=== PATIENT | female | born 1960 | race Caucasian/White ===

== ENCOUNTER 2017-01-21 13:44 | Emergency (ER) | payer MEDICAID ==
[2017-01-21] MEDS ORDERED: TETANUS/DIPHTHERIA/PERTUSSIS 0.5 ML SYRINGE IM ONE ×2 (13:53→13:55)
[2017-01-21] MEDS ORDERED: CEPHALEXIN 250 MG CAPSULE PO STA (14:24)
[2017-01-21] MEDS ORDERED: CEPHALEXIN 250 MG CAPSULE PO ONE (14:27)
== END 2017-01-21 14:32 | disposition home or self-care (01) ==
DX: L08.9 Local infection of the skin and subcutaneous tissue, unspecified (principal); S71.131A Puncture wound without foreign body, right thigh, initial encounter; S70.11XA Contusion of right thigh, initial encounter; W01.198A Fall on same level from slipping, tripping and stumbling with subsequent striking against other object, initial encounter; Y92.009 Unspecified place in unspecified non-institutional (private) residence as the place of occurrence of the external cause; Z23 Encounter for immunization; F17.200 Nicotine dependence, unspecified, uncomplicated
CPT/HCPCS: 90471; 90715; 99283; A9270

== ENCOUNTER 2017-05-09 09:52 | Emergency (ER) | payer SELFPAY ==
[2017-05-09 10:09] LABS: BILIRUBIN,URINE NEGATIVE (NEGATIVE)
[2017-05-09 10:11] LABS: HCG UR QUAL NEGATIVE; UA w/ MICROSCOPIC CHARGE YES
[2017-05-09 10:51] LABS: UR CULTURE IF IND NOT INDICATED; WBC,URINE >25 /HPF (0-5)
--- NOTE | 2017-05-09 11:32 | ED Physician Documentation ---
History of Present Illness - Stated complaint Stated Complaint: FEMALE - Chief complaint Chief Complaint: General - Additonal information Additional information: Patient is a 57-year-old female who is otherwise healthy. She presents with a complaint of lower urinary symptoms started this morning. She has frequency, urgency, and hesitancy. She can still still because of the lower bladder pain. She otherwise is healthy and does not have any complaints of fever or chills. She started having a couple episodes of nausea this morning with one episode of vomiting. Review of systems: For pertinent positive and negatives in the review of systems please see the history of present illness, otherwise all other systems have been reviewed and are negative. Dragon disclaimer: Parts of this medical record were created using voice recognition technology. Because of the inherent limitations of this system, occasional same sounding word substitutions do occur and persist despite proofreading. Please read the document for context. 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 - Present Medications Home Medications: Ambulatory Orders Medication Instructions Recorded Confirmed Ciprofloxacin HCl [Cipro] 500 mg PO BID #10 tablet 05/09/17 Ondansetron Odt [Zofran] 4 mg TL Q6H PRN #10 tablet 05/09/17 Phenazopyridine HCl [Pyridium] 200 mg PO TID #9 tablet 05/09/17 oxyCODONE/ACET 5/325 [Percocet 5 1 each PO Q4-6H PRN #10 tablet 05/09/17 mg/325 mg] - Allergies Allergies/Adverse Reactions: Allergies Allergy/AdvReac Type Severity Reaction Status Date / Time iodine Allergy Unknown Verified 05/09/17 10:05 - Social History Does the pt smoke?: Yes Smoking Status: Current some day smoker Does the pt drink ETOH?: No Does the pt have substance abuse?: No - Immunizations Immunizations: TDAP >10years/unknown PD ED PE NORMAL - Vitals Vital signs reviewed: Yes - General General: Alert and oriented X 3, No acute distress, Well developed/nourished, Other (Patient looks a little uncomfortable. She is pacing at her bed. Well- appearing slightly flushed) - HEENT HEENT: Atraumatic - Neck Neck: Supple, no meningeal sign - Cardiac Cardiac: RRR - Respiratory Respiratory: No respiratory distress, Clear bilaterally - Abdomen Abdomen: Normal bowel sounds, Soft - Back Back: No CVA TTP - Derm Derm: Normal color, Warm and dry, No rash Results - Vitals Vitals: Vital Signs - 24 hr 05/09/17 10:04 Temperature 36.8 C Heart Rate 98 Respiratory 17 Rate Blood Pressure 139/94 H O2 Saturation 98 Oxygen O2 Source Room air - Labs Labs: Laboratory Tests 05/09/17 09:50 Urine Color YELLOW Urine Clarity CLOUDY Urine pH 6.0 Ur Specific [place] 1.025 Urine Protein >=300 H Urine Glucose (UA) NEGATIVE Urine Ketones TRACE Urine Occult Blood LARGE H Urine Nitrite POSITIVE H Urine Bilirubin NEGATIVE Urine Urobilinogen 0.2 (NORMAL) Ur Leukocyte Esterase MODERATE H Urine RBC TNTC H Urine WBC >25 H Urine WBC Clumps PRESENT Ur Squamous Epith Cells MOD Squamous H Urine Bacteria Many H Ur Microscopic Review INDICATED Urine Culture Comments NOT INDICATED Urine HCG, Qual NEGATIVE PD MEDICAL DECISION MAKING - ED course Complexity details: reviewed old records, reviewed results, re-evaluated patient , d/w patient ED course: Well-appearing pleasant 57-year-old woman who really for the most part is very healthy. She presents with lower urinary symptoms starting this morning and then had some nausea and episode of vomiting here in emergency department. For the most part she looks well. Her symptoms and urinalysis are consistent with a lower urinary tract infection. She wanted to try oral approach here initially so she is given Pyridium ciprofloxacin tramadol and Zofran. She wants to be discharged these medications which I have written she agrees to come back should she worsen and be unable to take her antibiotics. Disposition: To home Clinical impression: 1. Acute lower urinary tract infection Departure - Departure Disposition: Home, Self Care Clinical Impression: UTI (urinary tract infection) Qualifiers: Urinary tract infection type: acute cystitis Hematuria presence: without hematuria Qualified Code(s): N30.00 - Acute cystitis without hematuria Condition: Good Instructions: ED UTI Cystitis Female Follow-Up: Courtney Waggoner ARNP [Primary Care Provider] - Prescriptions: Ciprofloxacin HCl [Cipro] 500 mg PO BID #10 tablet oxyCODONE/ACET 5/325 [Percocet 5 mg/325 mg] 1 each PO Q4-6H PRN #10 tablet PRN Reason: Pain Phenazopyridine HCl [Pyridium] 200 mg PO TID #9 tablet Ondansetron Odt [Zofran] 4 mg TL Q6H PRN #10 tablet PRN Reason: Nausea / Vomiting Forms: Activity restrictions
[2017-05-09] MEDS ORDERED: traMADol 50 MG TABLET PO ONE (11:36)
[2017-05-09] MEDS ORDERED: CIPROFLOXACIN 250 MG TABLET PO ONE (11:36)
[2017-05-09 11:37] VITALS: BP 137/88
[2017-05-09] MEDS: CIPROFLOXACIN 250 MG TABLET PO STA (11:37)
[2017-05-09] MEDS: ONDANSETRON ODT 4 MG TABLET TL STA (11:37)
[2017-05-09] MEDS ORDERED: PHENAZOPYRIDINE 100 MG TABLET PO ONE (11:37)
[2017-05-09] MEDS ORDERED: ONDANSETRON ODT 4 MG TABLET ONE (11:37)
[2017-05-09] MEDS: traMADol 50 MG TABLET PO STA (11:38)
[2017-05-09] MEDS: PHENAZOPYRIDINE 100 MG TABLET PO STA (11:38)
== END 2017-05-09 11:42 | disposition home or self-care (01) ==
LOC: ED 09:52
DX: N30.00 Acute cystitis without hematuria (principal); F17.200 Nicotine dependence, unspecified, uncomplicated
CPT/HCPCS: 81001; 81025; 99283; A9270; Q0162; 81003; 87086

== ENCOUNTER 2018-09-14 15:26 | Outpatient (CLI) | payer OTHER ==
--- NOTE | 2018-09-17 08:52 | Ultrasound Report ---
Reason: LUMP Procedure Date: 09/14/2018 Accession Number: [id number] / [id number] Procedure: US - Head or Neck Soft Tissue CPT Code: FULL RESULT: EXAM: THYROID ULTRASOUND EXAM DATE: 09/14/2018 04:08 PM. CLINICAL HISTORY: Lump. COMPARISON: None. TECHNIQUE: Real time sonographic imaging of the right medial clavicle at site of palpable lump with comparative imaging of the left medial clavicle was performed by the measuring machine tender. Multiple dermatology sales representative static images were saved for review. FINDINGS: Right clavicle: There is a nonspecific asymmetric heterogeneous echotexture soft tissue mass/prominence of the medial right clavicle corresponding to palpable area of concern measuring 1.6 x 6 x 9 mm in dimension. Appearance is asymmetric compared to the contralateral side. There is internal nonshadowing hyperechogenicity within this soft tissue mass. Mass is not vascular. Exact relationship to the sternoclavicular joint is not determined on these images. LYMPH NODES: No adenopathy demonstrated in the imaged areas. OTHER: None. IMPRESSION: 1. Asymmetric, nonspecific soft tissue mass corresponding to a palpable mass medial right clavicle. Differential considerations include degenerative changes arising from the sternoclavicular joint versus a true mass. Consider definitive imaging with CT. RADIA
== END 2018-09-14 15:27 | disposition home or self-care (01) ==
LOC: DI 15:26
PROVIDERS: ATTEND Nurse Practitioner Gerontology
DX: R22.2 Localized swelling, mass and lump, trunk (principal)
CPT/HCPCS: 76536

== ENCOUNTER 2018-09-21 14:55 | Outpatient (CLI) | payer OTHER ==
[2018-09-21 17:23] LABS: CALCIUM 9.6 mg/dL (8.5-10.3); CREATININE 0.6 mg/dL (0.4-1.0)
== END 2018-09-21 23:59 | disposition home or self-care (01) ==
LOC: LAB.N 14:55
PROVIDERS: ATTEND Nurse Practitioner Gerontology
DX: Z13.9 Encounter for screening, unspecified (principal)
CPT/HCPCS: 36415; 80048

== ENCOUNTER 2018-10-04 14:42 | Outpatient (CLI) | payer OTHER ==
--- NOTE | 2018-10-05 10:00 | CT Report ---
Reason: LUMP Procedure Date: 10/04/2018 Accession Number: [id number] / [id number] Procedure: CT - Neck Soft Tissue W/O CPT Code: FULL RESULT: EXAM: CT SOFT TISSUE NECK WITHOUT CONTRAST. EXAM DATE: 10/04/2018 02:57 PM. HISTORY: Lump in region of superior chest near right sternoclavicular joint. COMPARISONS: Ultrasound soft tissue neck 09/14/2018. TECHNIQUE: Routine soft tissue neck CT protocol. Reconstructions: Coronal and sagittal. IV contrast: None. Patient reports an anaphylactic allergy to iodine contrast. In accordance with CT protocol optimization, one or more of the following dose reduction techniques were utilized for this exam: automated exposure control, adjustment of mA and/or KV based on patient size, or use of iterative reconstructive technique. FINDINGS: The lack of intravenous contrast limits the examination. There is arthrosis and hypertrophic change centered on the right sternoclavicular joint. Subchondral cyst formation is seen involving the right clavicular head. No significant hypertrophic change is seen in the left sternoclavicular joint. These findings are seen just below the level of the marker placed along the anterior right lower neck. Noncontrast neck CT demonstrates no suspicious soft tissue mass in the right lower neck or in the upper chest. Atherosclerotic calcification is seen in the distal CCA and proximal cervical ICA bilaterally. The thyroid gland is not enlarged. No mass is present in either parotid gland or in either submandibular gland. No bulky lymphadenopathy is seen in the visualized upper mediastinum or along either internal jugular chain. No mass is identified in either visualized orbit. No mass is identified in the visualized brain. No mass is present in the nasopharynx. The parapharyngeal fat is symmetric. Aryepiglottic folds are symmetric. No subglottic stenosis is seen. No suspicious spiculated mass is present in either lung apex. Degenerative disk disease and osteophyte formation are present at C5-C6. Anterior disk protrusion and osteophyte formation is seen at C6-C7. No air-fluid level is seen in the visualized paranasal sinuses. IMPRESSION: 1. Arthrosis and hypertrophic change are seen involving the right sternoclavicular joint. This might well be the etiology of the patient's palpable abnormality. 2. No bulky lymphadenopathy is identified by noncontrast CT in the neck. 3. Atherosclerotic plaque is seen involving the distal CCA extending into the proximal cervical ICA bilaterally. RADIA
== END 2018-10-04 14:43 | disposition home or self-care (01) ==
LOC: DI 14:42
PROVIDERS: ATTEND Nurse Practitioner Gerontology
DX: M19.011 Primary osteoarthritis, right shoulder (principal); I65.23 Occlusion and stenosis of bilateral carotid arteries
CPT/HCPCS: 70490

== ENCOUNTER 2019-01-08 09:24 | Outpatient (CLI) | payer OTHER | END 2019-01-08 23:59 | disposition home or self-care (01) | LOC: LAB.R 09:24 | PROVIDERS: ATTEND Nurse Practitioner | DX: N76.0 Acute vaginitis (principal) | CPT/HCPCS: 87480; 87510; 87660 ==

== ENCOUNTER 2019-01-15 15:01 | Emergency (ER) | payer OTHER ==
[2019-01-15 15:12] VITALS: BP 121/96
[2019-01-15] MEDS ORDERED: BUFFERED LIDOCAINE 10 ML SYRINGE SUBQ STA (16:15)
--- NOTE | 2019-01-15 16:35 | ED Physician Documentation ---
PD HPI UPPER EXT INJURY - Stated complaint Stated Complaint: RT HAND LAC - Chief complaint Chief Complaint: Laceration - History obtained from History obtained from: Patient - History of Present Illness Location: Right, Finger (thumb) Type of injury: Laceration Where injury occurred: Work Timing - onset: Enter time (1529), Yesterday Timing - duration: Days (1) Timing - details: Abrupt onset, Still present Improved by: Rest, Immobilization Worsened by: Moving, Palpating Associated symptoms: No: Weakness, Numbness, Tingling, Swelling Contributing factors: No: Anticoagulated Similar symptoms before: Diagnosis (laceration) Recently seen: Not recently seen - Additonal information Additional information: 58-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 This happened yesterday she was able to tape it closed and when she got back to work today she took the bandages off and her boss insisted she come to the emergency department for evaluation. 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 - Present Medications Home Medications: Ambulatory Orders Medication Instructions Recorded Confirmed metroNIDAZOLE [Metronidazole] 500 mg PO 01/15/19 01/15/19 - Allergies Allergies/Adverse Reactions: Allergies Allergy/AdvReac Type Severity Reaction Status Date / Time iodine Allergy Unknown Verified 01/15/19 15:12 - Social History Does the pt smoke?: Yes Smoking Status: Current every day smoker Does the pt drink ETOH?: No Does the pt have substance abuse?: No - Immunizations Immunizations: TDAP >10years/unknown PD ED PE NORMAL - Vitals Vital signs reviewed: Yes (hypertensive ) - General General: Alert and oriented X 3, No acute distress, Well developed/nourished - HEENT HEENT: Atraumatic, PERRL, EOMI - Neck Neck: Supple, no meningeal sign - Respiratory Respiratory: No respiratory distress - Derm Derm: Normal color, Warm and dry, No rash - Extremities Extremities: No deformity, No edema, Other (There is a 2 cm flap laceration on the pulp of the thumb. 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, No motor deficit, No sensory deficit, Normal speech Eye Opening: Spontaneous Motor: Obeys Commands Verbal: Oriented GCS Score: 15 - Psych Psych: Normal mood, Normal affect Results - Vitals Vitals: Vital Signs - 24 hr 01/15/19 15:10 Temperature 36.9 C Heart Rate 88 Respiratory 20 Rate Blood Pressure 121/96 H O2 Saturation 99 Oxygen O2 Source Room air Procedures - Laceration (location) right thumb Length in cm: 2 Wound type: Curved, Flap, Into subcut fat, Clean Neurovascular status: Sensory intact, Motor intact, Vascular intact Anesthesia: Lidocaine 1%, With bicarb Wound Preparation: Hibiclens, Irrigated copiously NS, Wound explored, To the base Skin layer closure: Nylon, Interrupted, Size #-0 - enter number (4-0), Sutures - enter # (5) Other: Patient tolerated well, No complications, Neurovascular intact, Dressing applied, Tetanus UTD Complexity: Simple PD MEDICAL DECISION MAKING - ED course Complexity details: considered differential, d/w patient ED course: 58-year-old female with a 24-hour old laceration and appears to have vital tissue and the laceration is cleansed and closed. Departure - Departure Disposition: 01 Home, Self Care Clinical Impression: Thumb laceration Qualifiers: Encounter type: initial encounter Damage to nail status: without damage Foreign body presence: without foreign body Laterality: right Qualified Code(s): S61.011A - Laceration without foreign body of right thumb without damage to nail, initial encounter Condition: Stable Instructions: ED Laceration Hand Follow-Up: Danii Serna DNP [Primary Care Provider] - Comments: Sutures will need to be removed in 7-10 days.
== END 2019-01-15 16:48 | disposition home or self-care (01) ==
LOC: ED 15:01
DX: S61.011A Laceration without foreign body of right thumb without damage to nail, initial encounter (principal); W25.XXXA Contact with sharp glass, initial encounter; Y93.89 Activity, other specified; Y92.89 Other specified places as the place of occurrence of the external cause; Y99.0 Civilian activity done for income or pay; F17.200 Nicotine dependence, unspecified, uncomplicated
CPT/HCPCS: 12001; 99282

== ENCOUNTER 2019-01-29 13:54 | Outpatient (CLI) | payer OTHER ==
[2019-01-29 19:53] LABS: CHOLESTEROL 225 mg/dL; HDL CHOLESTEROL 45 mg/dL; LDL CHOLESTEROL,CALCULATED 163 mg/dL; LDL/HDL RATIO 3.6 (<4.4); VLDL CHOLESTEROL 17 mg/dL
== END 2019-01-29 23:59 | disposition home or self-care (01) ==
LOC: LAB.N 13:54
PROVIDERS: ATTEND Hospitalist
DX: I70.90 Unspecified atherosclerosis (principal)
CPT/HCPCS: 36415; 80061; 83721

== ENCOUNTER 2019-03-03 02:47 | Outpatient (CLI) | payer OTHER | END 2019-03-03 02:48 | disposition critical access hospital (66) | LOC: EMS 02:47 | PROVIDERS: ATTEND Surgery | DX: S99.911A Unspecified injury of right ankle, initial encounter (principal); R41.82 Altered mental status, unspecified; W19.XXXA Unspecified fall, initial encounter; Y92.008 Other place in unspecified non-institutional (private) residence as the place of occurrence of the external cause | CPT/HCPCS: A0425; A0429 ==

== ENCOUNTER 2019-03-03 03:27 | Emergency (ER) | payer OTHER ==
--- NOTE | 2019-03-03 04:01 | ED Physician Documentation ---
PD HPI LOWER EXT INJURY - Stated complaint Stated Complaint: FELL DOWN STAIRS, ETOH, ? RIGHT ANKLE FX - Chief complaint Chief Complaint: Trauma Hd/Nk - History obtained from History obtained from: Patient - History of Present Illness PD HPI LOW EXT INJURY LOCATION: Right, Ankle Type of injury: Fall (She was at a friend's birthday libertarian and had been drinking. She was walking down some steps and fell. She denies injury to the head or neck. She did have pain in the right ankle. Her circular knife machine cutter was concerned about the fall and called EMS. She was brought here with a cervical collar in place. She did not want to be on a backboard. She states she did not feel she had a significant injury of the ankle.) Timing - onset: How many minutes ago (30), Today Timing - details: Abrupt onset Worsened by: Moving, Palpating Associated symptoms: Swelling (lateral aspect right ankle). 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 - Present Medications Home Medications: Ambulatory Orders Medication Instructions Recorded Confirmed metroNIDAZOLE [Metronidazole] 500 mg PO 01/15/19 01/15/19 - Allergies Allergies/Adverse Reactions: Allergies Allergy/AdvReac Type Severity Reaction Status Date / Time iodine Allergy Unknown Verified 03/03/19 03:33 - Social History Does the pt smoke?: Yes Smoking Status: Current every day smoker Does the pt drink ETOH?: No Does the pt have substance abuse?: No - Immunizations Immunizations: TDAP >10years/unknown - POLST Patient has POLST: No PD ED PE NORMAL - Vitals Vital signs reviewed: Yes - General General: Alert and oriented X 3, No acute distress, Well developed/nourished - HEENT HEENT: Atraumatic, PERRL, EOMI - Neck Neck: Supple, no meningeal sign, No bony TTP, No adenopathy - Cardiac Cardiac: RRR, No murmur - Respiratory Respiratory: Clear bilaterally - Abdomen Abdomen: Soft, Non tender - Derm Derm: Normal color, Warm and dry - Neuro Neuro: Alert and oriented X 3 (She is slightly loud and talking. She is however able to answer questions appropriately.), No motor deficit, No sensory deficit Results - Vitals Vitals: Vital Signs - 24 hr 03/03/19 03:29 Temperature 36.4 C L Heart Rate 88 Respiratory 18 Rate Blood Pressure 130/86 H O2 Saturation 94 Oxygen O2 Source Room air - Rads (name of study) right ankle Radiology: Prelim report reviewed, EMP read contemporaneously (no ankle fractures. Old calcifications off the lateral cuboid, do not appear acute.), See rad report PD MEDICAL DECISION MAKING - ED course Complexity details: re-evaluated patient (She is able to ambulate here in the ER. A ankle brace. Her x-ray does not show any obvious fractures. She still does not have any headache chest pain belly pain or neck pain.), considered differential, d/w patient Departure - Departure Disposition: 01 Home, Self Care Clinical Impression: Fall down steps Qualifiers: Encounter type: initial encounter Qualified Code(s): W10.8XXA - Fall (on) (from) other stairs and steps, initial encounter Ankle sprain Qualifiers: Encounter type: initial encounter Involved ligament of ankle: unspecified ligament Laterality: right Qualified Code(s): S93.401A - Sprain of unspecified ligament of right ankle, initial encounter Alcohol intoxication Qualifiers: Complication of substance-induced condition: uncomplicated Qualified Code(s): F10.920 - Alcohol use, unspecified with intoxication, uncomplicated Condition: Stable Record reviewed to determine appropriate education?: Yes Instructions: ED Sprain Ankle Follow-Up: Danii Serna DNP [Primary Care Provider] - Comments: Activity as tolerated based on comfort of walking. Tylenol or ibuprofen as needed for pains. Elevate and rest your ankle and foot through the day today to reduce the swelling. I would anticipate improvement over the next several days to week.
--- NOTE | 2019-03-03 04:41 | XRAY Report ---
Reason: fell down stairs; ankle swelling. Procedure Date: 03/03/2019 Accession Number: [id number] / [id number] Procedure: XR - Ankle 3 View RT CPT Code: FULL RESULT: EXAM: RIGHT ANKLE RADIOGRAPHY EXAM DATE: 03/03/2019 04:31 AM. CLINICAL HISTORY: Fell down stairs; ankle swelling. COMPARISON: None. TECHNIQUE: 3 views. FINDINGS: Bones: Normal. No fractures or bone lesions. Joints: Normal. No effusion. No subluxations. The ankle mortise is normally aligned. Soft Tissues: Soft tissue swelling. No radiopaque foreign body. IMPRESSION: Soft tissue swelling. No evidence of acute fracture. RADIA
[2019-03-03 04:58] VITALS: BP 122/81
== END 2019-03-03 05:13 | disposition home or self-care (01) ==
LOC: EDUNIT# → ED 03:27
DX: S93.401A Sprain of unspecified ligament of right ankle, initial encounter (principal); W10.9XXA Fall (on) (from) unspecified stairs and steps, initial encounter; Y93.01 Activity, walking, marching and hiking; F10.920 Alcohol use, unspecified with intoxication, uncomplicated; F17.200 Nicotine dependence, unspecified, uncomplicated
CPT/HCPCS: 99283

== ENCOUNTER 2021-06-05 08:00 | Outpatient (CLI) | payer SELFPAY | END 2021-06-05 23:59 | disposition home or self-care (01) | LOC: LAB.S 08:00 | PROVIDERS: ATTEND Physician Assistant Medical | DX: N39.0 Urinary tract infection, site not specified (principal) | CPT/HCPCS: 87077; 87086; 87181 ==

== ENCOUNTER 2021-10-25 08:00 | Outpatient (CLI) | payer SELFPAY ==
[2021-10-25 22:45] LABS: BACTERIAL VAGINOSIS DNA NEGATIVE (NEGATIVE); CANDIDA GLABRATA DNA NEGATIVE (NEGATIVE); CANDIDA GROUP DNA NEGATIVE (NEGATIVE); CANDIDA KRUSEI DNA NEGATIVE (NEGATIVE); TRICHOMONAS VAGINALIS DNA NEGATIVE (NEGATIVE)
== END 2021-10-25 23:59 | disposition home or self-care (01) ==
LOC: LAB.S 08:00
PROVIDERS: ATTEND Physician Assistant
DX: N89.8 Other specified noninflammatory disorders of vagina (principal)
CPT/HCPCS: 87661; 87801

== ENCOUNTER 2023-08-17 10:19 | Outpatient (CLI) | payer SELFPAY ==
[2023-08-17 14:56] LABS: BILIRUBIN,URINE NEGATIVE (NEGATIVE); GLUCOSE, URINE (UA) NEGATIVE (NEGATIVE); KETONES,URINE (UA) NEGATIVE (NEGATIVE); LEUKOCYTE ESTERASE, URINE NEGATIVE (NEGATIVE); NITRITE,URINE POSITIVE (NEGATIVE); OCCULT BLOOD,URINE SMALL (NEGATIVE); PH,URINE 5.5 PH (5.0-7.5); PROTEIN,URINE NEGATIVE (NEGATIVE); UROBILINOGEN,URINE 0.2 (NORMAL) E.U./dL (NORMAL)
[2023-08-17 15:18] LABS: BACTERIA,URINE Moderate /HPF (None Seen); CLARITY,URINE SL. CLOUDY (CLEAR); SQUAMOUS EPITHELIAL CELL,UR RARE Squamous (<= Few); WBC,URINE >25 /HPF (0-5)
== END 2023-08-17 10:20 | disposition home or self-care (01) ==
LOC: LAB.S 10:19
PROVIDERS: ATTEND Emergency Medicine
DX: R30.0 Dysuria (principal)
CPT/HCPCS: 81001; 87077; 87086; 87181

== ENCOUNTER 2023-09-24 21:18 | Outpatient (CLI) | payer MEDICAID | END 2023-09-24 23:59 | disposition critical access hospital (66) | LOC: EMS 21:18 | DX: S02.5XXA Fracture of tooth (traumatic), initial encounter for closed fracture (principal); R41.82 Altered mental status, unspecified; W19.XXXA Unspecified fall, initial encounter; Y92.009 Unspecified place in unspecified non-institutional (private) residence as the place of occurrence of the external cause; F10.90 Alcohol use, unspecified, uncomplicated | CPT/HCPCS: A0425; A0427; A0999 ==

== ENCOUNTER 2023-09-24 21:42 | Emergency (ER) | payer MEDICAID ==
[2023-09-24] MEDS ORDERED: SODIUM CHLORIDE 0.9% 1,000 ML IV STA (21:55)
[2023-09-24 22:22] LABS: BASOPHILS % (AUTO) 0.4 %; EOSINOPHILS # (AUTO) 0.1 10^3/uL (0.0-0.7); HCT - HEMATOCRIT 41.2 % (37.0-47.0); HGB - HEMOGLOBIN 13.3 g/dL (12.0-16.0); LYMPHOCYTES # (AUTO) 2.4 10^3/uL (1.5-3.5); MEAN CORPUSCULAR HEMOGLOBIN 28.7 pg (27.0-31.0); MEAN CORPUSCULAR HGB CONC 32.3 g/dL (32.0-36.0); MEAN PLATELET VOLUME 9.8 fL (7.9-10.8); MONOCYTES # (AUTO) 0.6 10^3/uL (0.0-1.0); MONOCYTES % (AUTO) 8.1 %; NEUTROPHILS # (AUTO) 3.9 10^3/uL (1.5-6.6); NEUTROPHILS % (AUTO) 55.2 %; PLT - PLATELET COUNT 260 10^3/uL (130-450); RED BLOOD COUNT 4.63 10^6/uL (4.20-5.40); RED CELL DISTRIBUTION WIDTH 13.9 % (12.0-15.0)
[2023-09-24 22:36] LABS: ALBUMIN/GLOBULIN RATIO 1.4 (1.0-2.2); BILIRUBIN,TOTAL 0.3 mg/dL (0.2-1.0); CALCIUM 8.8 mg/dL (8.5-10.3); CREATININE 0.6 mg/dL (0.6-1.3); ETOH - ETHANOL 401.5 mg/dL; POTASSIUM 3.4 mmol/L (3.5-4.5); TOTAL PROTEIN 6.9 g/dL (6.4-8.9)
--- NOTE | 2023-09-24 23:51 | ED Physician Documentation ---
History of Present Illness - Stated complaint Stated Complaint: GLF, ETOH, MOUTH INJURY - Chief complaint Chief Complaint: Neuro - History obtained from History obtained from: Patient - Additonal information Additional information: 63yF presents s/p unwitnessed fall from standing with unknown LOC and AMS. patient intoxicated with alcohol. alerted only to self. GCS 13 on arrival. 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 - Present Medications Home Medications: Ambulatory Orders Medication Instructions Recorded Confirmed Amox/Clav 875/125 [Augmentin 1 tablet PO Q12H 5 Days #10 tablet 09/25/23 875/125 Tab] - Allergies Allergies/Adverse Reactions: Allergies Allergy/AdvReac Type Severity Reaction Status Date / Time iodine Allergy Unknown Verified 09/24/23 22:02 - Social History Does the pt smoke?: Yes Smoking Status: Current every day smoker Does the pt drink ETOH?: No Does the pt have substance abuse?: No - Immunizations Immunizations are current?: Yes Immunizations: TDAP >10years/unknown - POLST Patient has POLST: No PD ED PE NORMAL - Vitals Vital signs reviewed: Yes - General General: No acute distress, Well developed/nourished, Other (AOX1) - HEENT HEENT: Atraumatic, PERRL, EOMI, Moist mucous membranes, Other (avulsed upper central incisor with exposed pulp) - Neck Neck: No bony TTP, Other (soft collar in place on arrival) - Cardiac Cardiac: RRR - Respiratory Respiratory: No respiratory distress, Clear bilaterally - Abdomen Abdomen: Non tender, Non distended - Derm Derm: Normal color, Warm and dry - Neuro Neuro: medical support assistant 2-12 intact, No motor deficit, No sensory deficit, Normal speech Eye Opening: To Voice Motor: Obeys Commands Verbal: Confused GCS Score: 13 - Psych Psych: Other (intoxicated with alcohol) Results - Vitals Vitals: Vital Signs - 24 hr 09/24/23 09/24/23 09/24/23 21:49 22:49 23:08 Temperature 36.8 C Heart Rate 73 80 80 Respiratory 20 16 24 Rate Blood Pressure 114/70 117/74 93/83 H O2 Saturation 97 98 95 If not protocol : Oxygen Flow, liters/minute 09/25/23 09/25/23 09/25/23 00:31 02:06 02:40 Temperature Heart Rate 80 80 Respiratory 24 16 Rate Blood Pressure 116/75 107/70 134/77 H O2 Saturation 100 100 100 If not protocol 2 : Oxygen Flow, liters/minute Oxygen O2 Source Nasal cannula - Labs Labs: Laboratory Tests 09/24/23 09/24/23 22:18 22:18 WBC 7.0 RBC 4.63 Hgb 13.3 Hct 41.2 MCV 89.0 MCH 28.7 MCHC 32.3 RDW 13.9 Plt Count 260 MPV 9.8 Neut # (Auto) 3.9 Lymph # (Auto) 2.4 [place] # (Auto) 0.6 Eos # (Auto) 0.1 Baso # (Auto) 0.0 Absolute Nucleated RBC 0.00 Nucleated RBC % 0.0 Sodium 138 Potassium 3.4 L Chloride 107 Carbon Dioxide 17 L Anion Gap 14.0 H BUN 16 Creatinine 0.6 Estimated GFR (MDRD) 101 Glucose 184 H Calcium 8.8 Total Bilirubin 0.3 AST 31 ALT 34 Alkaline Phosphatase 91 Total Protein 6.9 Albumin 4.0 Globulin 2.9 Albumin/Globulin Ratio 1.4 Lipase 30 Ethyl Alcohol 401.5 PD Medical Decision Making - ED course ED course: 63yF presents to the ED with tooth avulsion and for medical eval s/p unwitnessed fall, +etoh. patient not on blood thinners per ems, but history largely unknown 2/[address] head/C spine/max facial employed given possible head injury in setting of AMS. imaging negative except for tooth fracture. Avulsed tooth was treated with dental sealant, antibiotics, and referral to emergency dental provided. d/w Dr. Beka Robb over the phone. return precautions given. Departure - Departure Disposition: 01 Home, Self Care Clinical Impression: Avulsed tooth, Alcohol abuse, Fall Condition: Stable Instructions: ED Fx Tooth Follow-Up: BEKA ROBB [Physician No Access] - Prescriptions: Amox/Clav 875/125 [Augmentin 875/125 Tab] 1 tablet PO Q12H 5 Days #10 tablet Comments: You were seen in the emergency department for Avulsed tooth and alcohol intoxication. You need to follow-up with emergency dental in 48 hours. Prescription for augmentin antibiotic was printed for you. Please return to the emergency department if you have any new or worsening symptoms or other concerns. Forms: PCP List
[2023-09-25] MEDS ORDERED: AMOX/CLAV 875 MG/125 MG TABLET PO STA (01:15)
--- NOTE | 2023-09-25 01:52 | CT Report ---
PROCEDURE: HEAD WO INDICATIONS: fall from standing, unwitness +etoh TECHNIQUE: Noncontrast 4.5 mm thick angled axial sections acquired from the foramen magnum to the vertex. For r adiation dose reduction, the following was used: automated exposure control, adjustment of mA and/or kV according to patient size. COMPARISON: None. FINDINGS: Image quality: Partially degraded by patient motion artifact. CSF spaces: Basal cisterns are patent. No extra-axial fluid collections. Ventricles are normal in size and shape. Brain: No midline shift. No intracranial masses or hemorrhage. [place]-white matter interface is norm al. Skull and face and sinuses: Please see separately dictated CT maxillofacial study obtained concurrent ly.. IMPRESSION: No acute intracranial pathology. Reviewed by: Kathleen Salter MD on 09/25/2023 1:51 AM PST Approved by: Kathleen Salter MD on 09/25/2023 1:51 AM PST Station ID: [id number]
--- NOTE | 2023-09-25 01:55 | CT Report ---
PROCEDURE: CERVICAL SPINE WO INDICATIONS: unwitnessed fall TECHNIQUE: Noncontrast 3 mm thick sections acquired from the skull base to the T4 level. Sagittal and coronal r eformats were then constructed. For radiation dose reduction, the following was used: automated exp osure control, adjustment of mA and/or kV according to patient size. COMPARISON: None. FINDINGS: Image quality: Diagnostic. Bones: No fractures or dislocations. Visualized superior ribs are intact. Multilevel degenerative changes, worse at C5-C6. Soft tissues: Prevertebral soft tissues are normal in thickness. No paravertebral hematomas. No ap ical pneumothoraces. IMPRESSION: No acute fracture or traumatic subluxation. Reviewed by: Kathleen Salter MD on 09/25/2023 1:54 AM PST Approved by: Kathleen aSlter MD on 09/25/2023 1:54 AM PST Station ID: [id number]
--- NOTE | 2023-09-25 02:03 | CT Report ---
PROCEDURE: MAXILLOFACIAL WO INDICATIONS: fall on face, unwitnessed TECHNIQUE: Noncontrast 1.5 mm thick axial images acquired from the mandible through the frontal sinuses, with co caron and sagittal reformatting. For radiation dose reduction, the following was used: automated ex posure control, adjustment of mA and/or kV according to patient size. COMPARISON: Same day CT head without contrast 09/25/2023 obtained concurrently. FINDINGS: Image quality: Streak artifact from dental hardware limits evaluation of surrounding soft tissue.. Bones and teeth: Orbital brown are intact. Sinus brown show no fracture or deformity. Nasal bones and septum are intact. Visualized portions of the mandible demonstrate no fractures or subluxation. Zygomatic arches are intact. Pterygoid plates are intact. Visualized portions of the skull base an d auditory canals are intact. Tooth #8 is absent and tooth #9 is fractured Sinuses: Mucous retention cyst in the right frontal sinus. Remainder of the paranasal sinuses are ae rated, without fluid levels, mucosal thickening, or mucoceles. Mastoid air cells are aerated. Soft tissues: No edema, masses, or fluid collections. No enlarged lymph nodes. No soft tissue lace rations or debris. Vascular: Visualized vascular structures appear normal in the absence of contrast. Bony vascular fo ramina and canals are intact. IMPRESSION: No acute craniofacial fracture. Central tooth #9 is fractured and central tooth #8 is absent. Reviewed by: Kathleen Salter MD on 09/25/2023 2:02 AM PST Approved by: Kathleen Salter MD on 09/25/2023 2:02 AM PST Station ID: [id number]
[2023-09-25 04:05] VITALS: BP 119/73; O2SAT 100
== END 2023-09-25 04:25 | disposition home or self-care (01) ==
LOC: EDUNIT# → ED 21:42
DX: S03.2XXA Dislocation of tooth, initial encounter (principal); W18.30XA Fall on same level, unspecified, initial encounter; F10.129 Alcohol abuse with intoxication, unspecified; F17.200 Nicotine dependence, unspecified, uncomplicated
CPT/HCPCS: 36415; 70450; 70486; 72125; 80053; 80320; 83690; 85025; 99284; A9270

== ENCOUNTER 2023-10-25 07:00 | Outpatient (CLI) | payer MEDICAID ==
--- NOTE | 2023-10-25 19:52 | XRAY Report ---
PROCEDURE: Chest 2V INDICATIONS: DYSPNEA ON EXERTION TECHNIQUE: 2 views of the chest were obtained. COMPARISON: None. FINDINGS: Surgical changes and devices: None. Lungs and pleura: No pleural effusions or pneumothorax. Lungs are clear. Mediastinum: Mediastinal contours appear normal. Heart size is normal. Bones and chest wall: No suspicious bony lesions. Overlying soft tissues appear unremarkable. IMPRESSION: Normal two-view chest x-ray Reviewed by: Ke West MD on 10/25/2023 6:50 PM [facility] Approved by: Ke West MD on 10/25/2023 6:50 PM [facility] Station ID: [id number]
== END 2023-10-25 23:59 | disposition home or self-care (01) ==
LOC: DI.S 07:00
PROVIDERS: ATTEND Registered Nurse
DX: R06.09 Other forms of dyspnea (principal); J02.9 Acute pharyngitis, unspecified; R06.2 Wheezing; R05.1 Acute cough

== ENCOUNTER 2023-11-29 13:33 | Outpatient (CLI) | payer MEDICAID ==
[2023-11-29 17:40] LABS: BASOPHILS % (AUTO) 0.4 %; EOSINOPHILS # (AUTO) 0.1 10^3/uL (0.0-0.7); EOSINOPHILS % (AUTO) 0.8 %; HCT - HEMATOCRIT 44.6 % (37.0-47.0); HGB - HEMOGLOBIN 14.1 g/dL (12.0-16.0); LYMPHOCYTES # (AUTO) 2.1 10^3/uL (1.5-3.5); LYMPHOCYTES % (AUTO) 24.6 %; MEAN CORPUSCULAR HGB CONC 31.6 g/dL (32.0-36.0); MEAN CORPUSCULAR VOLUME 91.8 fL (81.0-99.0); MEAN PLATELET VOLUME 10.7 fL (7.9-10.8); MONOCYTES # (AUTO) 0.6 10^3/uL (0.0-1.0); MONOCYTES % (AUTO) 7.6 %; NEUTROPHILS # (AUTO) 5.6 10^3/uL (1.5-6.6); NEUTROPHILS % (AUTO) 66.1 %; PLT - PLATELET COUNT 307 10^3/uL (130-450); RED BLOOD COUNT 4.86 10^6/uL (4.20-5.40); RED CELL DISTRIBUTION WIDTH 14.2 % (12.0-15.0); WHITE BLOOD COUNT 8.4 x10^3/uL (4.8-10.8)
[2023-11-29 18:06] LABS: ALBUMIN/GLOBULIN RATIO 1.3 (1.0-2.2); ALKALINE PHOSPHATASE 100 IU/L (42-121); ALT ALANINE AMINOTRANSFERASE 29 IU/L (10-60); AST ASPARTATE AMINOTRANSFERASE 18 IU/L (10-42); BILIRUBIN,TOTAL 0.4 mg/dL (0.2-1.0); BUN - BLOOD UREA NITROGEN 20 mg/dL (6-20); CALCIUM 9.2 mg/dL (8.5-10.3); CARBON DIOXIDE - CO2 26 mmol/L (21-32); CHLORIDE 101 mmol/L (101-111); CHOL/HDL RATIO 4.6 (<4.4); CHOLESTEROL 207 mg/dL; CREATININE 0.8 mg/dL (0.6-1.3); GFR - MDRD 73 (>89); GLUCOSE 261 mg/dL (74-104); HDL CHOLESTEROL 45 mg/dL; LDL CHOLESTEROL,CALCULATED 101 mg/dL; LDL/HDL RATIO 2.2 (<4.4); SODIUM 134 mmol/L (135-145); TOTAL PROTEIN 7.2 g/dL (6.4-8.9); TRIGLYCERIDES 305 mg/dL (48-352); VLDL CHOLESTEROL 61 mg/dL
[2023-11-29 18:08] LABS: THYROID STIMULATING HORMONE 2.24 uIU/mL (0.34-5.60)
[2023-11-30 00:40] LABS: ESTIMATED AVERAGE GLUCOSE 197 mg/dL (70-100); HEMOGLOBIN A1c% 8.5 % (4.27-6.07)
== END 2023-11-29 13:34 | disposition home or self-care (01) ==
LOC: LAB.N 13:33
PROVIDERS: ATTEND Physician Assistant Medical
DX: Z13.9 Encounter for screening, unspecified (principal)
CPT/HCPCS: 36415; 80053; 80061; 83036; 83721; 84443; 85025

== ENCOUNTER 2023-12-26 13:57 | Outpatient (CLI) | payer MEDICAID ==
--- NOTE | 2023-12-27 09:56 | Mammography Report ---
BILATERAL DIGITAL SCREENING MAMMOGRAM 3D/2D WITH EXAGGERATED CC: 12/26/2023 CLINICAL: Routine screening. Family history of breast cancer. Comparison is made to exam dated: 03/29/2016 mammogram - [facility]. There are scattered areas of fibroglandular density in both breasts (category b / 25%-50% glandular t issue). No significant masses, calcifications, or other findings are seen in either breast. There has been no significant interval change. IMPRESSION: NEGATIVE There is no mammographic evidence of malignancy. A 1 year screening mammogram is recommended. Based on the Tyrer Cuzick model (a risk assessment model) the patient's lifetime risk is 2.8% and her 10 year risk is 1.2%. According to the ACR, ACS, and NCCN guidelines, an annual breast MRI exam thais g with mammogram is recommended if the patient's lifetime risk is 20% or greater. This exam was interpreted at Station ID: [id number]. NOTE: For mammograms, a report in lay terms will be sent to the patient. Approximately 15% of breast malignancies will not be visualized mammographically. In the management of a palpable breast mass, a negative mammogram must not discourage biopsy of a clinically suspicious lesion. Electronically Signed By: Shakeel stephens/fer:12/26/2023 18:15:22 ACR BI-RADS Category 1: Negative 3341F PARENCHYMAL PATTERN: (A) - The breast(s) demonstrate(s) scattered fibroglandular densities. BI-RADS CATEGORY: (1) - 1 RECOMMENDATION: (ANNUAL) - Recommend routine annual screening mammography. [id number] 1 year screening LATERALITY: (B)
== END 2023-12-26 13:58 | disposition home or self-care (01) ==
LOC: DI.S 13:57
PROVIDERS: ATTEND Physician Assistant Medical
DX: Z12.31 Encounter for screening mammogram for malignant neoplasm of breast (principal); Z80.3 Family history of malignant neoplasm of breast; R92.323 Mammographic fibroglandular density, bilateral breasts

== ENCOUNTER 2024-02-09 06:25 | Day surgery (SDC) | payer MEDICAID ==
[2024-02-09] MEDS: LACTATED RINGERS 1,000 ML IV ONE ×2 (06:30→08:03)
[2024-02-09] MEDS ORDERED: PROPOFOL 500 MG/50 ML 500 MG/50 ML VIAL ONE (06:48)
[2024-02-09] MEDS ORDERED: MIDAZOLAM 2 MG/2 ML VIAL ONE (06:53)
--- NOTE | 2024-02-09 06:54 | ANESTHESIA ---
Pre-Anesthesia VS, & Labs - Diagnosis screening - Procedure colonoscopy Vital Signs: Temp Pulse Resp BP Pulse Ox O2 Flow Rate 36 C L 85 14 101/73 95 02/09/24 06:37 02/09/24 06:37 02/09/24 06:37 02/09/24 06:37 02/09/24 06:37 Height: 5 ft 9 in Weight (kg): 86.2 kg Body Mass Index: 28.0 BMI Classification: Overweight - NPO >8 hours Last Fluid Intake: am prep - Is Patient ?: No - Lab Results Lab results reviewed: Yes Home Medications and Allergies Home Medications: Ambulatory Orders Empagliflozin [Jardiance] 25 mg PO DAILY 02/09/24 Allergies/Adverse Reactions: Allergies Allergy/AdvReac Type Severity Reaction Status Date / Time iodine Allergy Unknown Verified 02/09/24 06:53 Anes History & Medical History - Anesthetic History Anesthesia Complications: reports: No previous complications Family history of Anesthesia Complications: Denies Family history of Malignant Hyperthermia: Denies - Medical History Cardiovascular: reports: High cholesterol Pulmonary: reports: None Gastrointestinal: reports: None Urinary: reports: None Musculoskeletal: reports: None Endocrine/Autoimmune: reports: None, Type 2 diabetes Skin: reports: None Smoking Status: Current every day smoker - Surgical History Gynecologic: reports: Hysterectomy Exam General: Alert, Oriented x3, Cooperative Dental: Partials Upper Mouth Openin Fingerbreadth Neck Mobility: Normal Mallampati classification: II Thyromental Distance: 4-6 cm Respiratory: Lungs clear, Normal breath sounds, No respiratory distress Cardiovascular: Regular rate Neurological: Normal speech Mental/Cognitive Status: Alert/Oriented X3, Normal for patient Cognitive Status: Within normal limits Plan Anesthesia Type: Total IV Consent for Procedure(s) Verified and Reviewed: Yes Code Status: Attempt Resuscitation ASA classification: 2-Mild systemic disease Is this case an emergency?: No
[2024-02-09 08:36] VITALS: BP 141/88; O2SAT 100
--- NOTE | 2024-02-09 09:58 | ANESTHESIA POST OP EVALUATION ---
Anesthesia Post Eval - Post Anesthesia Eval Vitals: Last Vital Signs Temp 36.5 C 02/09/24 08:03 Pulse 68 02/09/24 08:33 Resp 19 02/09/24 08:33 BP 141/88 H 02/09/24 08:33 Pulse Ox 100 02/09/24 08:33 O2 Flow Rate CV Function Including HR & BP: Stable Pain Control: Satisfactory Nausea & Vomiting: Negative Mental Status: Baseline Respiratory Status: Airway Patent Hydration Status: Satisfactory Anesthesia Complications: None
== END 2024-02-09 06:26 | disposition home or self-care (01) ==
LOC: SDS 06:25
PROVIDERS: ATTEND Surgery
PROC: 0DBP8ZZ Excision of Rectum, Via Natural or Artificial Opening Endoscopic (ICD-10-PCS; principal; 2024-02-09 07:30)
DX: Z12.11 Encounter for screening for malignant neoplasm of colon (principal); D12.8 Benign neoplasm of rectum; K57.30 Diverticulosis of large intestine without perforation or abscess without bleeding; F17.200 Nicotine dependence, unspecified, uncomplicated; E11.9 Type 2 diabetes mellitus without complications; Z79.84 Long term (current) use of oral hypoglycemic drugs
CPT/HCPCS: 45380; J7120